=== PATIENT | female | born 1985 | race African-American/Black ===

== ENCOUNTER 2021-01-07 14:08 | Emergency (ER) | payer MEDICAID ==
[~2021-01-07] VITALS: Ht 180.3 cm; Wt 91.0 kg
[~2021-01-07 14:08] MED LIST: FOLI-43 PO; METR250T PO; PREN-88 PO
[2021-01-07] MEDS ORDERED: KETOROLAC 30MG/ML VIAL IV STA (16:17)
[2021-01-07] MEDS ORDERED: ONDANSETRON HCL 4MG/2ML INJ IV STA (16:17)
[2021-01-07] MEDS ORDERED: LEVETIRACETAM 500MG PREMIX 100 ML IV ONE (16:30)
[2021-01-07] MEDS ORDERED: ACETAMINOPHEN 325MG TABLET PO ONE (16:30)
[2021-01-07] MEDS ORDERED: SODIUM CHLORIDE 0.9% 1,000 ML IV ONE (16:30)
[2021-01-07 16:47] LABS: BASOPHILS % 0.4 % (0.0-2.0); EOSINOPHILS % 2.6 % (0.0-5.0); HEMATOCRIT. 35.5 % (36.0-48.0); HEMOGLOBIN. 11.7 g/dL (12.0-16.0); LYMPHOCYTES % 14.6 % (20.0-50.0); MEAN CORPUSCULAR HEMOGLOBIN 28.1 pg (28.0-32.0); MEAN CORPUSCULAR VOLUME 85.1 fL (81.0-99.0); MEAN PLATELET VOLUME 8.1 fl (7.4-10.4); MONOCYTES % 8.3 % (2.0-8.0); NEUTROPHILS % 74.1 % (40.0-76.0); PLATELET 295 x1000/uL (130-400); RED BLOOD CELL COUNT 4.17 mill/uL (4.2-5.4); RED CELL DISTRIBUTION WIDTH 16.1 % (11.6-14.6)
[2021-01-07 17:03] LABS: CHLORIDE 108 mEq/L (98-107)
[2021-01-07 17:10] LABS: ETHANOL BLOOD < 10 mg/dL
[2021-01-07 17:14] LABS: CLARITY URINE CLOUDY (CLEAR); COLOR URINE YELLOW (YELLOW); KETONES URINE NEGATIVE (NEGATIVE); LEUKOCYTE ESTERASE URINE 1+ (NEGATIVE); NITRITE URINE NEGATIVE (NEGATIVE); OCCULT BLOOD URINE TRACE (NEGATIVE); PROTEIN URINE TRACE (NEGATIVE); SPECIFIC GRAVITY URINE 1.033 (1.005-1.030)
[2021-01-07 17:32] LABS: *AMPHETAMINES SCREEN URINE NEGATIVE (NEGATIVE); *BARBITURATES SCREEN URINE NEGATIVE (NEGATIVE); *BENZODIAZEPINES SCREEN URINE NEGATIVE (NEGATIVE)
[2021-01-07 17:33] LABS: METHADONE URINE SCREEN NEGATIVE (NEGATIVE); OPIATES URINE SCREEN NEGATIVE (NEGATIVE); PHENCYCLIDINE URINE SCREEN NEGATIVE (NEGATIVE)
[2021-01-07 17:44] LABS: *COCAINE SCREEN URINE PRESUMTIVE POSITIVE (NEGATIVE); CANNABINOID URINE SCREEN PRESUMTIVE POSITIVE (NEGATIVE)
[2021-01-07] MEDS ORDERED: LEVE500T19 MT (18:25)
[2021-01-07] MEDS ORDERED: NAPR-679 MT (18:25)
[2021-01-07] MEDS ORDERED: TRAMADOL 50MG TABLET PO ONE (19:45)
[2021-01-07 20:00] VITALS: BP 102/69
== END 2021-01-07 20:22 | disposition home or self-care (01) ==
LOC: ER 14:08
DX: F14.10 Cocaine abuse, uncomplicated (principal); G40.909 Epilepsy, unspecified, not intractable, without status epilepticus; R51.9 Headache, unspecified; J45.909 Unspecified asthma, uncomplicated; F12.10 Cannabis abuse, uncomplicated; F17.210 Nicotine dependence, cigarettes, uncomplicated; Z86.011 Personal history of benign neoplasm of the brain; Z71.6 Tobacco abuse counseling
CPT/HCPCS: 36415; 70450; 80053; 80185; 80305; 80320; 81003; 85025; 93005; 96365; 96375; 99285; 99406; J1885; J1953; J2405; J7030; G0480

== ENCOUNTER 2023-08-17 01:04 | Emergency (ER) | payer SELFPAY ==
[~2023-08-17] VITALS: Ht 180.3 cm; Wt 82.0 kg
[~2023-08-17 01:04] MED LIST changes: +LEVE500T19 MT; +NAPR-679 MT
[2023-08-17 01:22] VITALS: O2SAT 100
[2023-08-17] MEDS ORDERED: SODIUM CHLORIDE 0.9% 1,000 ML IV ONE (02:15)
[2023-08-17] MEDS: LEVETIRACETAM 500MG/5ML CUP PO ONE (02:27)
[2023-08-17 03:40] LABS: BASOPHILS % 0.4 % (0.0-2.0); EOSINOPHILS % 1.6 % (0.0-5.0); HEMATOCRIT. 34.5 % (36.0-48.0); LYMPHOCYTES % 51.4 % (20.0-50.0); MEAN CORPUSCULAR HEMOGLOBIN 29.6 pg (28.0-32.0); MEAN CORPUSCULAR HGB CONC 34.8 g/dL (31.0-37.0); MEAN CORPUSCULAR VOLUME 85.2 fL (81.0-99.0); MEAN PLATELET VOLUME 7.7 fl (7.4-10.4); NEUTROPHILS % 32.6 % (40.0-76.0); PLATELET 243 x1000/uL (130-400); RED BLOOD CELL COUNT 4.05 mill/uL (4.2-5.4); RED CELL DISTRIBUTION WIDTH 14.3 % (11.6-14.6); WHITE BLOOD COUNT 6.4 x1000/uL (4.5-11.0)
[2023-08-17 03:46] LABS: CHLORIDE 104 mEq/L (98-107); POTASSIUM 3.7 mEq/L (3.5-5.1); SODIUM 137 mEq/L (136-145)
[2023-08-17 03:47] LABS: CALCIUM 9.1 mg/dL (8.7-10.4); CARBON DIOXIDE 27 mEq/L (21-32)
[2023-08-17 03:52] LABS: CREATININE 0.5 mg/dL (0.6-1.0); ETHANOL BLOOD < 10 mg/dL (<10); GLUCOSE 109 mg/dL (70-105); UREA NITROGEN BLOOD 14 mg/dL (9-23)
[2023-08-17 03:54] LABS: PHENYTOIN < 2.0 ug/mL (10-20); TROPONIN I HIGH SENSITIVITY < 4 ng/L (3.0-34)
[2023-08-17 04:05] LABS: HCG SCREEN NEGATIVE
[2023-08-17] MEDS ORDERED: PHENYTOIN SODIUM EXTENDED 100MG CAPSULE PO NR (04:15)
[2023-08-17] MEDS ORDERED: PHEN100C4 MT (04:41)
[2023-08-17] MEDS ORDERED: LEVE1000 MT (04:41)
[2023-08-17 05:20] VITALS: BP 118/61; PULSE 108; RESP 22; TEMP 98.3
== END 2023-08-17 05:22 | disposition home or self-care (01) ==
LOC: ER 01:33
DX: G40.89 Other seizures (principal); F14.90 Cocaine use, unspecified, uncomplicated; Z98.890 Other specified postprocedural states
CPT/HCPCS: 80048; 80320; 80185; 84703; 83880; 85025; 84484; 36415; 71045; 93005; 99285; 82542; J7030; G0480

== ENCOUNTER 2024-01-05 22:35 | Emergency (ER) | payer MEDICAID ==
[~2024-01-05] VITALS: Ht 172.7 cm; Wt 75.0 kg
[~2024-01-05 22:35] MED LIST changes: +LEVE1000 MT; +PHEN100C4 MT
[2024-01-05 22:38] VITALS: TEMP 98.2; O2SAT 100
[2024-01-05] MEDS: LEVETIRACETAM 1500MG PREMIX 100 ML IV STA (23:52)
[2024-01-05 23:58] LABS: BASOPHILS % 0.6 % (0.0-2.0); EOSINOPHILS % 1.2 % (0.0-5.0); HEMATOCRIT. 36.2 % (36.0-48.0); HEMOGLOBIN. 12.7 g/dL (12.0-16.0); LYMPHOCYTES % 45.9 % (20.0-50.0); MEAN CORPUSCULAR HEMOGLOBIN 30.2 pg (28.0-32.0); MEAN CORPUSCULAR HGB CONC 35.1 g/dL (31.0-37.0); MEAN PLATELET VOLUME 7.9 fl (7.4-10.4); MONOCYTES % 8.1 % (2.0-8.0); NEUTROPHILS % 44.2 % (40.0-76.0); PLATELET 292 x1000/uL (130-400); RED CELL DISTRIBUTION WIDTH 14.1 % (11.6-14.6); WHITE BLOOD COUNT 9.1 x1000/uL (4.5-11.0)
[2024-01-06 00:10] LABS: CHLORIDE 105 mEq/L (98-107); POTASSIUM 3.7 mEq/L (3.5-5.1); SODIUM 137 mEq/L (136-145)
[2024-01-06 00:11] LABS: CALCIUM 9.4 mg/dL (8.7-10.4); CARBON DIOXIDE 29 mEq/L (21-32)
[2024-01-06 00:14] LABS: HCG SCREEN NEGATIVE
[2024-01-06 00:16] LABS: CREATININE 0.5 mg/dL (0.6-1.0); GLUCOSE 97 mg/dL (70-105); UREA NITROGEN BLOOD 10 mg/dL (9-23)
[2024-01-06 00:17] LABS: ALANINE AMINOTRANSFERASE 20 IU/L (10-49); ASPARTATE AMINOTRANSFERASE 15 IU/L (<34)
[2024-01-06 00:18] LABS: BILIRUBIN TOTAL 0.2 mg/dL (0.1-1.0); PROTEIN TOTAL 7.3 g/dL (6.0-8.3)
[2024-01-06 00:19] LABS: BILIRUBIN DIRECT < 0.1 mg/dL (<=3.0); ETHANOL BLOOD < 10 mg/dL (<10)
[2024-01-06] MEDS: ACETAMINOPHEN 325MG TABLET PO ONE (00:32)
[2024-01-06 04:15] VITALS: BP 124/58; PULSE 89; RESP 18; O2SAT 100
== END 2024-01-06 04:39 | disposition home or self-care (01) ==
LOC: ER 22:35
DX: G40.909 Epilepsy, unspecified, not intractable, without status epilepticus (principal); Z79.1 Long term (current) use of non-steroidal anti-inflammatories (NSAID); Z79.899 Other long term (current) drug therapy
CPT/HCPCS: 80076; 80048; 80320; 84703; 85025; 36415; 71045; 96365; 96366; 99285; 70450; J1953; Z7610 ×2; G0480